=== PATIENT | female | born 1990 | race Caucasian/White ===

== ENCOUNTER 2017-02-04 12:26 | Emergency (ER) | payer OTHER ==
[~2017-02-04] VITALS: Ht 167.6 cm; Wt 65.8 kg
[2017-02-04 12:31] VITALS: BP 115/68
[2017-02-04] MEDS ORDERED: FLONASE 0.05%50 MCG NASAL (12:48)
[2017-02-04] MEDS ORDERED: IBUPROFEN 800800 M1 PO (12:48)
[2017-02-04] MEDS ORDERED: AMOXICILLIN 50500 MG PO (12:48)
== END 2017-02-04 13:01 | disposition home or self-care (01) ==
LOC: ER 12:26
DX: H66.92 Otitis media, unspecified, left ear (principal); R68.84 Jaw pain; F17.210 Nicotine dependence, cigarettes, uncomplicated; F10.99 Alcohol use, unspecified with unspecified alcohol-induced disorder

== ENCOUNTER 2017-11-19 11:03 | Emergency (ER) | payer OTHER ==
[~2017-11-19] VITALS: Ht 167.6 cm; Wt 65.8 kg
[~2017-11-19 11:03] MED LIST: AMOXICILLIN 50500 MG PO; FLONASE 0.05%50 MCG NASAL; IBUPROFEN 800800 M1 PO
[2017-11-19] MEDS ORDERED: ORTHO TRI-CYCL1 EACH PO (11:13)
== END 2017-11-19 11:59 | disposition home or self-care (01) ==
LOC: ER 11:03
DX: T70.0XXA Otitic barotrauma, initial encounter (principal); J06.9 Acute upper respiratory infection, unspecified; F17.210 Nicotine dependence, cigarettes, uncomplicated; X58.XXXA Exposure to other specified factors, initial encounter